=== PATIENT | male | born 1970 | race Two or more races ===

== ENCOUNTER 2021-11-19 21:31 | Inpatient (IN) | payer MEDICAID ==
[~2021-11-19] VITALS: Ht 182.9 cm; Wt 86.4 kg
[2021-11-19] MEDS ORDERED: diazePAM 2 MG TAB PO ONE (22:00)
[2021-11-19] MEDS ORDERED: SODIUM CHLORIDE 0.9% 1,000 ML IVB ONE (22:00)
[2021-11-19] MEDS ORDERED: KETOROLAC TROMETH 60MG/2ML VIAL IM ONE (22:00)
[2021-11-19] MEDS ORDERED: KETOROLAC TROMETH 30 MG/ML 1ML VIAL IV ONE (22:30)
[2021-11-19 22:32] LABS: Basophils # (auto) 0 10 ^3/uL (0-0.2); Basophils % (auto) 0.3 % (0.0-2.0); Eosinophils # (auto) 0.1 10 ^3/uL (0-0.8); Eosinophils % (auto) 1.3 % (0.0-7.0); Hematocrit 40.2 % (41.0-53.0); Hemoglobin 13.7 g/dL (13.5-17.5); Lymphocytes # (auto) 2.7 10 ^3/uL (0.4-5.4); Lymphocytes % (auto) 45.7 % (10.0-50.0); Mean Corpuscular Hemoglobin 31.1 pg (28.0-32.0); Mean Corpuscular Volume 91.4 fL (80.0-100.0); Monocytes # (auto) 0.6 10 ^3/uL (0-1.3); Monocytes % (auto) 9.6 % (0.0-12.0); Neutrophils # (auto) 2.6 10 ^3/uL (1.6-8.6); Neutrophils % (auto) 43.1 % (37.0-80.0); Red Cell Distribution Width 12.8 % (11.8-14.3)
[2021-11-19 22:52] LABS: Albumin 3.9 g/dL (3.4-5.0); BUN/Creatinine Ratio 18.6; Calcium 8.5 mg/dL (8.5-10.1); Potassium 3.9 mmol/L (3.5-5.1)
[2021-11-19 22:53] LABS: Bilirubin, Total 0.4 mg/dL (0.2-1.0)
[2021-11-19] MEDS ORDERED: KETOROLAC TROMETH 30 MG/ML 1ML VIAL IV PRN (23:30)
[2021-11-19] MEDS ORDERED: diazePAM 2 MG TAB PO PRN (23:30)
[2021-11-19] MEDS ORDERED: TEMAZEPAM 15 MG CAP PO PRN (23:30)
[2021-11-19] MEDS ORDERED: ACETAMINOPHEN 325 MG TAB PO PRN (23:30)
[2021-11-19] MEDS ORDERED: MORPHINE SULFATE INJ 2 MG/ml SYRG IV PRN (23:30)
[2021-11-19] MEDS ORDERED: ONDANSETRON HCL 4 MG/2 ML VIAL IV PRN (23:30)
[2021-11-19] MEDS ORDERED: HYDROcodone-ACET 5/325MG TAB PO PRN (23:30)
[2021-11-19 23:51] LABS: Urine Amorphous Crystal FEW /hpf (None Seen); Urine Bacteria NONE SEEN /hpf (None Seen); Urine Blood Negative /uL (Negative); Urine Mucus FEW (None Seen); Urine Specific Gravity 1.029 (1.001-1.035); Urine WBC 3 /hpf (0 - 3)
[2021-11-20] VITALS (7 sets, daily range): BP systolic 96–142; BP diastolic 65–84
[2021-11-20] MEDS: PANTOPRAZOLE 40 MG TAB PO SCH (09:38)
[2021-11-20] MEDS: HYDROcodone-ACET 7.5/325MG TAB PO PRN (17:00)
[2021-11-21 05:00] VITALS: BP 130/86
[2021-11-21] MEDS ORDERED: TRAM100T37 PO (05:56)
[2021-11-21] MEDS: HYDROcodone-ACET 7.5/325MG TAB PO PRN (08:25)
[2021-11-21 09:00] VITALS: BP 113/69
[2021-11-21] MEDS: PANTOPRAZOLE 40 MG TAB PO SCH (10:17)
[2021-11-21 13:00] VITALS: BP 141/79
[2021-11-21] MEDS ORDERED: ERGO1CAP23 PO (15:48)
[2021-11-21 16:40] VITALS: BP 115/72
== END 2021-11-21 14:24 | disposition home or self-care (01) | DRG 347 ==
LOC: EEVIPCON 21:36 → ER 21:36 → OVERFLOW 23:38 → WEST WING 23:59
PROVIDERS: ADMIT Nurse Practitioner; ATTEND Internal Medicine
DX: M51.16 Intervertebral disc disorders with radiculopathy, lumbar region (principal); E55.9 Vitamin D deficiency, unspecified; G89.29 Other chronic pain; S39.012A Strain of muscle, fascia and tendon of lower back, initial encounter; X58.XXXA Exposure to other specified factors, initial encounter; Y93.89 Activity, other specified; Y92.89 Other specified places as the place of occurrence of the external cause; Y99.8 Other external cause status; R73.03 Prediabetes
CPT/HCPCS: 36415; 72131; 72148; 80053; 81001; 82306; 82607; 83036; 84154; 84443; 85025; 96361; 96374; G0378; J1885